=== PATIENT | male | born 1945 | race Caucasian/White ===

== ENCOUNTER → 2016-09-10 | Outpatient (CLI) | payer BC ==
[~2016-09-10] MED LIST: LPR25 PO
--- NOTE | 2016-09-10 11:18 | DIAGNOSTIC IMAGING REPORT ---
LUMBAR SPINE 5 VIEWS HISTORY: Pain LOW BACK PAIN COMPARISON: None. FINDINGS: Very slight rotational scoliosis. Moderate degenerative disc change throughout. This is most prominent from L2 through L4. Moderate degenerative change posterior elements. IMPRESSION: Degenerative change. Mild scoliosis. No acute bony abnormality. Electronically signed by: Jonathan Fay M.D. 09/10/2016 11:17 AM Dictated Date/Time: 09/10/2016 11:17 AM
== END | disposition home or self-care (01) ==
LOC: C.RAD 10:17
PROVIDERS: ATTEND Chiropractor
DX: M54.5 Low back pain (principal); G89.29 Other chronic pain

== ENCOUNTER 2016-10-21 13:50 | Emergency (ER) | payer BC ==
[~2016-10-21] VITALS: Ht 188 cm; Wt 78.0 kg
[2016-10-21 13:53] VITALS: TEMP 36.5; Ht 188 cm; Wt 78.0 kg
[2016-10-21 14:18] VITALS: O2SAT 98
[2016-10-21] MEDS ORDERED: METOPROLOL TARTRATE 1 MG/ML VIAL IV STA (14:46)
--- NOTE | 2016-10-21 14:54 | EMERGENCY ROOM VISIT NOTE ---
History First contact with patient: 14:30 Chief Complaint: CARDIAC ASSESSMENT Stated Complaint: SOB, CHEST IS TIGHT, DIZZY, LIGHTHEADED Nursing Triage Summary: pt c/o BSOB, rapid heart beat around 1030. pt denies chest pain. hx of afib last october History of Present Illness The patient is a 71 year old male who presents to the Emergency Room with complaints of shortness of breath and dizziness that started this morning. The patient was going upstairs when he first noticed his symptoms. He denies any chest pain or pressure. He felt as though his heart was racing. The patient has a history of a one-time episode of A. fib. He was admitted to the hospital in 2016. A workup was performed. It spontaneously resolved. He does not take any medications including anticoagulation. The patient denies any recent illnesses, fever or cough. He reports eating and drinking normally. No excessive alcohol use. He does not smoke. He denies any significant stressors. Review of Systems 10 system review performed and negative unless noted in HPI or below Past Medical/Surgical History History of paroxysmal A. fib Family History Heart disease Father in his 80s of heart failure Mother passed of COPD Social History Smoking Status: Never Smoker Drug Use: none Marital Status: Housing Status: lives with family Occupation Status: retired Current/Historical Medications Scheduled Metoprolol Tartrate (Lopressor), 12.5 MG PO BID Physical Exam Vital Signs Date Time Temp Pulse Resp B/P (MAP) Pulse Ox O2 Delivery O2 Flow Rate FiO2 10/21/16 16:57 65 20 140/89 99 10/21/16 15:21 65 18 135/95 97 Room Air 10/21/16 15:02 66 10/21/16 14:18 102 18 143/95 98 Room Air 10/21/16 14:18 98 Room Air 10/21/16 14:13 116 10/21/16 14:05 97 Room Air 10/21/16 13:56 100 Room Air 10/21/16 13:53 36.5 132 18 132/87 99 Room Air Physical Exam GENERAL: 71-year-old male, anxious in appearance, well-developed well-nourished. SKIN: The skin was without rashes, erythema, edema, or bruising. HEAD: Normocephalic atraumatic. MOUTH: Mucous membranes fairly moist. HEART: Tachycardic, irregularly irregular. No murmurs. LUNGS: Clear to auscultation bilaterally without wheezes, rales or rhonchi. No accessory muscle use. ABDOMEN: Positive bowel sounds x 4.Soft, nontender, without organomegaly. No guarding or rebound tenderness. MUSCULOSKELETAL: No muscle atrophy, erythema, or edema noted. Strength 5/5 throughout. NEURO: Patient was alert and oriented to person place and time. Normal sensation to touch. No focal neurological deficits. Medical Decision & Procedures ER Provider Diagnostic Interpretation: CHEST ONE VIEW PORTABLE CLINICAL HISTORY: SOB hx a fib/tachy cardiac arrhythmia COMPARISON STUDY: 11/05/2014 FINDINGS: Lungs are clear. Diaphragms are smooth. No focal infiltrate. No significant cardiac enlargement. IMPRESSION: No acute process. The above report was generated using voice recognition software. It may contain grammatical, syntax or spelling errors. Electronically signed by: Jonathan Fay M.D. 10/21/2016 3:08 PM Dictated Date/Time: 10/21/2016 3:07 PM Laboratory Results 10/21/16 14:50 Red Blood Count 4.97, Mean Corpuscular Volume 87.9, Mean Corpuscular Hemoglobin 30.2, Mean Corpuscular Hemoglobin Concent 34.3, Mean Platelet Volume 9.5, Neutrophils (%) (Auto) 46.1, Lymphocytes (%) (Auto) 42.8, Monocytes (%) (Auto) 9.0, Eosinophils (%) (Auto) 1.7, Basophils (%) (Auto) 0.2, Neutrophils # (Auto) 1.94, Lymphocytes # (Auto) 1.80, Monocytes # (Auto) 0.38, Eosinophils # (Auto) 0.07, Basophils # (Auto) 0.01 10/21/16 14:50 Test 10/21/16 14:50 White Blood Count 4.21 K/uL (4.8-10.8) Red Blood Count 4.97 M/uL (4.7-6.1) Hemoglobin 15.0 g/dL (14.0-18.0) Hematocrit 43.7 % (42-52) Mean Corpuscular Volume 87.9 fL (80-100) Mean Corpuscular Hemoglobin 30.2 pg (25-34) Mean Corpuscular Hemoglobin Concent 34.3 g/dl (32-36) Platelet Count 164 K/uL (130-400) Mean Platelet Volume 9.5 fL (7.4-10.4) Neutrophils (%) (Auto) 46.1 % Lymphocytes (%) (Auto) 42.8 % Monocytes (%) (Auto) 9.0 % Eosinophils (%) (Auto) 1.7 % Basophils (%) (Auto) 0.2 % Neutrophils # (Auto) 1.94 K/uL (1.4-6.5) Lymphocytes # (Auto) 1.80 K/uL (1.2-3.4) Monocytes # (Auto) 0.38 K/uL (0.11-0.59) Eosinophils # (Auto) 0.07 K/uL (0-0.5) Basophils # (Auto) 0.01 K/uL (0-0.2) RDW Standard Deviation 40.8 fL (36.4-46.3) RDW Coefficient of Variation 12.7 % (11.5-14.5) Immature Granulocyte % (Auto) 0.2 % Immature Granulocyte # (Auto) 0.01 K/uL (0.00-0.02) Anion Gap 6.0 mmol/L (3-11) Est Creatinine Clear Calc Drug Dose 84.5 ml/min Estimated GFR () 99.3 Estimated GFR (Non- 85.7 BUN/Creatinine Ratio 13.6 (10-20) Calcium Level 8.9 mg/dl (8.5-10.1) Magnesium Level 2.1 mg/dl (1.8-2.4) Total Bilirubin 0.9 mg/dl (0.2-1) Aspartate Amino Transf (AST/SGOT) 17 U/L (15-37) Alanine Aminotransferase (ALT/SGPT) 49 U/L (12-78) Alkaline Phosphatase 42 U/L (45-117) Total Creatine Kinase 106 U/L (39-308) Creatine Kinase MB 1.2 ng/ml (0.5-3.6) Creatine Kinase MB Ratio 1.1 (0-3.0) Troponin I < 0.015 ng/ml (0-0.045) Total Protein 6.7 gm/dl (6.4-8.2) Albumin 3.7 gm/dl (3.4-5.0) Globulin 3.0 gm/dl (2.5-4.0) Albumin/Globulin Ratio 1.2 (0.9-2) Thyroid Stimulating Hormone (TSH) 2.200 uIu/ml (0.300-4.500) Medications Administered Medications (Trade) Dose Ordered Sig/Bebeto Route Start Time Stop Time Status Last Admin Dose Admin Sodium Chloride 1,000 ml @ 999 mls/hr Q1H1M ONCE IV 10/21/16 15:00 10/21/16 16:00 DC 10/21/16 15:00 999 MLS/HR ECG Indication: SOB/dyspnea Rate (beats per minute): 129 Rhythm: sinus tachycardia Comparison ECG Date: Q waves in the anterior leads ED Course Patient was seen and examined Vital signs including blood pressure were reviewed medications list was verified with patient Labs were obtained, and a saline lock was established the patient was ordered Lopressor 5 mg IV. He was hydrated with 1 L of normal saline. The patient spontaneously converted to normal sinus rhythm without receiving the Lopressor. He was hydrated Imaging was performed and reviewed The case was discussed with supervising physician who personally evaluated the patient The case was also discussed with Dr. Loomis from cardiology The patient ambulated in the hallway without difficulty. I reviewed discharge instructions the patient. They voiced understanding and had no further questions. Medical Decision Differential diagnosis: Rapid A. fib, sinus tach, dehydration, pulmonary embolus , Acute myocardial infarction, cardiac arrhythmia, anemia, thyroid abnormality, pneumothorax, pneumonia, bronchitis, pericarditis, electrolyte imbalance This patient is a pleasant 71-year-old male that presented to the emergency department with shortness of breath, dizziness and heart racing. He is found to be in rapid A. fib. The patient was ordered fluids. He was also ordered a dose of Lopressor. before the Lopressor was given, the patient spontaneously converted to sinus rhythm. I continue to monitor him for an additional hour in the emergency department. The case was discussed with cardiology. They agree with starting the patient on low-dose Lopressor twice daily. They also did not find a need to start anticoagulation given the patient's low risk factors for stroke. The patient's cardiology appointment was bumped up to 11/02. He will also follow up with his primary care physician. He was urged to return to the emergency department with any new or worsening symptoms. Medication Reconcilliation Current Medication List: was personally reviewed by me Blood Pressure Screening Blood pressure disposition: Elevated BP felt to be situational Impression Primary Impression: Atrial fibrillation with rapid ventricular response Departure Information Dispostion Home / Self-Care Condition GOOD Prescriptions Metoprolol Tartrate (LOPRESSOR) 25 Mg Tab 12.5 MG PO BID for 30 Days, #30 TAB Prov: Carissa Mancia PA-C 10/21/16 Referrals No Doctor, Assigned (PCP) Patient Instructions AFL/Afib, [facility] Additional Instructions You were evaluated in the emergency department for shortness of breath, racing heart and dizziness. It appears that you were experiencing a heart arrhythmia noticed A. fib. It resolved on its own. It is recommended that you begin taking: Metoprolol 12.5 mg twice daily. (They may come in 25 mg tablets, requiring you to cut them in half) It is important to stay well hydrated. Avoid excessive caffeine or alcohol. 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 Return to the emergency department if you have any of the following symptoms: -Returning dizziness, lightheadedness, chest pain or difficulty breathing
[2016-10-21 14:56] LABS: BASO % 0.2 %; BASO ABS # 0.01 K/uL (0-0.2); COMPLETE YES; EOS % 1.7 %; HEMATOCRIT 43.7 % (42-52); IG% 0.2 %; LYMPH % 42.8 %; MEAN CELL VOLUME 87.9 fL (80-100); MEAN CORPUSCULAR HEMOGLOBIN 30.2 pg (25-34); MEAN CORPUSCULAR HGB CONC 34.3 g/dl (32-36); MEAN PLATELET VOLUME 9.5 fL (7.4-10.4); NEUT % 46.1 %; PLATELET COUNT 164 K/uL (130-400); RED BLOOD COUNT 4.97 M/uL (4.7-6.1); WHITE BLOOD COUNT 4.21 K/uL (4.8-10.8)
[2016-10-21] MEDS ORDERED: SODIUM CHLORIDE 0.9% 1000ML 1,000 ML IV ONE (15:00)
[2016-10-21 15:04] LABS: ALT/SGPT 49 U/L (12-78); AST/SGOT 17 U/L (15-37); BLOOD UREA NITROGEN 12 mg/dl (7-18); BUN/CREATININE RATIO 13.6 (10-20); CALCIUM 8.9 mg/dl (8.5-10.1); CARBON DIOXIDE 29 mmol/L (21-32); CHLORIDE 108 mmol/L (98-107); CREATININE 0.91 mg/dl (0.60-1.40); GLUCOSE 88 mg/dl (70-99); MAGNESIUM 2.1 mg/dl (1.8-2.4); SODIUM 143 mmol/L (136-145)
--- NOTE | 2016-10-21 15:09 | DIAGNOSTIC IMAGING REPORT ---
CHEST ONE VIEW PORTABLE CLINICAL HISTORY: SOB hx a fib/tachy cardiac arrhythmia COMPARISON STUDY: 11/05/2014 FINDINGS: Lungs are clear. Diaphragms are smooth. No focal infiltrate. No significant cardiac enlargement. IMPRESSION: No acute process. The above report was generated using voice recognition software. It may contain grammatical, syntax or spelling errors. Electronically signed by: Jonathan Fay M.D. 10/21/2016 3:08 PM Dictated Date/Time: 10/21/2016 3:07 PM
[2016-10-21 15:10] LABS: ALB/GLOB RATIO 1.2 (0.9-2); ALKALINE PHOSPHATASE 42 U/L (45-117); CKMB/CK RATIO 1.1 (0-3.0)
--- NOTE | 2016-10-21 16:09 | EMERGENCY ROOM VISIT NOTE ---
ED Visit Note First contact with patient: 14:30 I have seen and examined this patient with Carissa Mancia and generally agree with the treatment plan as discussed. Current/Historical Medications No Active Prescriptions or Reported Meds Allergies Coded Allergies: No Known Allergies (Verified , 04/26/13) Vital Signs Date Time Temp Pulse Resp B/P (MAP) Pulse Ox O2 Delivery O2 Flow Rate FiO2 10/21/16 15:21 65 18 135/95 97 Room Air 10/21/16 15:02 66 10/21/16 14:18 102 18 143/95 98 Room Air 10/21/16 14:18 98 Room Air 10/21/16 14:13 116 10/21/16 14:05 97 Room Air 10/21/16 13:56 100 Room Air 10/21/16 13:53 36.5 132 18 132/87 99 Room Air Laboratory Results 10/21/16 14:50 Red Blood Count 4.97, Mean Corpuscular Volume 87.9, Mean Corpuscular Hemoglobin 30.2, Mean Corpuscular Hemoglobin Concent 34.3, Mean Platelet Volume 9.5, Neutrophils (%) (Auto) 46.1, Lymphocytes (%) (Auto) 42.8, Monocytes (%) (Auto) 9.0, Eosinophils (%) (Auto) 1.7, Basophils (%) (Auto) 0.2, Neutrophils # (Auto) 1.94, Lymphocytes # (Auto) 1.80, Monocytes # (Auto) 0.38, Eosinophils # (Auto) 0.07, Basophils # (Auto) 0.01 10/21/16 14:50 Test 10/21/16 14:50 White Blood Count 4.21 K/uL (4.8-10.8) Red Blood Count 4.97 M/uL (4.7-6.1) Hemoglobin 15.0 g/dL (14.0-18.0) Hematocrit 43.7 % (42-52) Mean Corpuscular Volume 87.9 fL (80-100) Mean Corpuscular Hemoglobin 30.2 pg (25-34) Mean Corpuscular Hemoglobin Concent 34.3 g/dl (32-36) Platelet Count 164 K/uL (130-400) Mean Platelet Volume 9.5 fL (7.4-10.4) Neutrophils (%) (Auto) 46.1 % Lymphocytes (%) (Auto) 42.8 % Monocytes (%) (Auto) 9.0 % Eosinophils (%) (Auto) 1.7 % Basophils (%) (Auto) 0.2 % Neutrophils # (Auto) 1.94 K/uL (1.4-6.5) Lymphocytes # (Auto) 1.80 K/uL (1.2-3.4) Monocytes # (Auto) 0.38 K/uL (0.11-0.59) Eosinophils # (Auto) 0.07 K/uL (0-0.5) Basophils # (Auto) 0.01 K/uL (0-0.2) RDW Standard Deviation 40.8 fL (36.4-46.3) RDW Coefficient of Variation 12.7 % (11.5-14.5) Immature Granulocyte % (Auto) 0.2 % Immature Granulocyte # (Auto) 0.01 K/uL (0.00-0.02) Anion Gap 6.0 mmol/L (3-11) Est Creatinine Clear Calc Drug Dose 84.5 ml/min Estimated GFR () 99.3 Estimated GFR (Non- 85.7 BUN/Creatinine Ratio 13.6 (10-20) Calcium Level 8.9 mg/dl (8.5-10.1) Magnesium Level 2.1 mg/dl (1.8-2.4) Total Bilirubin 0.9 mg/dl (0.2-1) Aspartate Amino Transf (AST/SGOT) 17 U/L (15-37) Alanine Aminotransferase (ALT/SGPT) 49 U/L (12-78) Alkaline Phosphatase 42 U/L (45-117) Total Creatine Kinase 106 U/L (39-308) Creatine Kinase MB 1.2 ng/ml (0.5-3.6) Creatine Kinase MB Ratio 1.1 (0-3.0) Troponin I < 0.015 ng/ml (0-0.045) Total Protein 6.7 gm/dl (6.4-8.2) Albumin 3.7 gm/dl (3.4-5.0) Globulin 3.0 gm/dl (2.5-4.0) Albumin/Globulin Ratio 1.2 (0.9-2) Thyroid Stimulating Hormone (TSH) 2.200 uIu/ml (0.300-4.500) Medications Administered Medications (Trade) Dose Ordered Sig/Bebeto Route Start Time Stop Time Status Last Admin Dose Admin Sodium Chloride 1,000 ml @ 999 mls/hr Q1H1M ONCE IV 10/21/16 15:00 10/21/16 16:00 DC 10/21/16 15:00 999 MLS/HR Departure Information Prescriptions No Active Prescriptions or Reported Meds Referrals No Doctor, Assigned (PCP) Patient Instructions [facility]
[2016-10-21] MEDS ORDERED: LPR25 PO (16:32)
[2016-10-21 16:57] VITALS: BP 140/89; PULSE 65; O2SAT 99
== END 2016-10-21 17:00 | disposition home or self-care (01) ==
LOC: C.EDB 13:51 → C.EDA 17:00
DX: I48.91 Unspecified atrial fibrillation (principal); Z79.899 Other long term (current) drug therapy

== ENCOUNTER → 2017-02-17 | Outpatient (CLI) | payer BC ==
[2017-02-17 09:31] LABS: BASO % 0.3 %; BASO ABS # 0.01 K/uL (0-0.2); COMPLETE YES; EOS % 2.7 %; HEMATOCRIT 42.8 % (42-52); LYMPH % 45.4 %; LYMPH ABS # 1.68 K/uL (1.2-3.4); MEAN CELL VOLUME 89.7 fL (80-100); MEAN CORPUSCULAR HGB CONC 33.4 g/dl (32-36); MEAN PLATELET VOLUME 9.6 fL (7.4-10.4); MONO % 10.3 %; NEUT % 41.3 %; PLATELET COUNT 178 K/uL (130-400); RED BLOOD COUNT 4.77 M/uL (4.7-6.1)
[2017-02-17 09:41] LABS: ESTIMATED AVERAGE GLUCOSE 97 mg/dl; HA1C FLAG Normal (Normal)
[2017-02-17 10:17] LABS: ALT/SGPT 28 U/L (12-78); AST/SGOT 7 U/L (15-37); BLOOD UREA NITROGEN 11 mg/dl (7-18); BUN/CREATININE RATIO 14.8 (10-20); CALCIUM 8.4 mg/dl (8.5-10.1); CARBON DIOXIDE 30 mmol/L (21-32); CHLORIDE 103 mmol/L (98-107); CHOLESTEROL 180 mg/dl (0-200); CREATININE 0.71 mg/dl (0.60-1.40); GLUCOSE 81 mg/dl (70-99); POTASSIUM 3.8 mmol/L (3.5-5.1); SODIUM 138 mmol/L (136-145); TRIGLYCERIDES 48 mg/dl (0-150); VERY LOW DENSITY LIPOPROT CALC 10 mg/dl
[2017-02-17 10:29] LABS: ALB/GLOB RATIO 1.2 (0.9-2); ALKALINE PHOSPHATASE 42 U/L (45-117); CHOLESTEROL/HDL RATIO 2.3; HDL CHOLESTEROL 79 mg/dl; LDL CHOLESTEROL CALCULATED 91 mg/dl
== END | disposition home or self-care (01) ==
LOC: C.LAB1850 07:37
PROVIDERS: ATTEND Neuromusculoskeletal Medicine & OMM
DX: Z00.00 Encounter for general adult medical examination without abnormal findings (principal); I48.0 Paroxysmal atrial fibrillation

== ENCOUNTER → 2017-10-14 | Outpatient (CLI) | payer BC ==
--- NOTE | 2017-10-14 16:25 | DIAGNOSTIC IMAGING REPORT ---
ULTRASOUND LEFT VENOUS DOPP LOWER EXT UNILAT CLINICAL HISTORY: M79.89 Left leg swelling. Evaluate for left lower extremity DVT - COMPARISON STUDY: No previous studies for comparison. FINDINGS: Real-time and color flow Doppler imaging were performed. Flow was seen within the femoral, popliteal and calf veins with no intraluminal thrombus demonstrated. The saphenous vein is patent. IMPRESSION: No evidence of left lower extremity DVT. Electronically signed by: Raymond Baker M.D. 10/14/2017 4:24 PM Dictated Date/Time: 10/14/2017 4:23 PM
== END | disposition home or self-care (01) ==
LOC: C.ULTR 16:00
PROVIDERS: ATTEND Nurse Practitioner Family
DX: M79.89 Other specified soft tissue disorders (principal)